=== PATIENT | female | born 1940 | race Caucasian/White ===

== ENCOUNTER → 2018-03-25 | Outpatient (CLI) | payer OTHER, BC ==
[~2018-03-25] MED LIST: CALC500C70 PO; CLC100 PO; CYAN10005 PO; DIGO0.122 PO; DLCSR120 PO; FLNIN NAE; HYDC25 PO; LACT10SO17; LATA0.009; MULT-506 PO; POTA-335 PO; PRLSR20 PO; SALM50AE2 INH; SIMV10TA2 PO; SYN75 PO
[2018-03-25 18:04] LABS: ALBUMIN 3.7 gm/dl (3.4-5.0); BLOOD UREA NITROGEN 19 mg/dl (7-18); CARBON DIOXIDE 28 mmol/L (21-32); CREATININE 0.94 mg/dl (0.60-1.20); GLUCOSE 128 mg/dl (70-99); POTASSIUM 4.1 mmol/L (3.5-5.1); SODIUM 138 mmol/L (136-145)
[2018-03-26 06:35] LABS: HEMOGLOBIN A1C 6.8 % (4.5-5.6)
== END | disposition home or self-care (01) ==
LOC: C.LABMFLN 14:33
PROVIDERS: ATTEND Family Medicine
DX: E11.9 Type 2 diabetes mellitus without complications (principal)